=== PATIENT | female | born 1975 | race Caucasian/White ===

== ENCOUNTER 2017-07-06 21:48 | Emergency (ER) | payer MEDICAID ==
[~2017-07-06] VITALS: Ht 170.2 cm; Wt 81.6 kg
[2017-07-06 22:05] VITALS: BP 151/98
== END 2017-07-07 02:31 | disposition home or self-care (01) ==
LOC: ER 21:48
DX: F31.9 Bipolar disorder, unspecified (principal); F17.210 Nicotine dependence, cigarettes, uncomplicated; Z76.0 Encounter for issue of repeat prescription; F20.9 Schizophrenia, unspecified

== ENCOUNTER → 2017-07-06 | Emergency (ER) | payer MEDICAID | END | disposition left against medical advice (07) | LOC: ER 13:45 | DX: F28 Other psychotic disorder not due to a substance or known physiological condition (principal); Z53.21 Procedure and treatment not carried out due to patient leaving prior to being seen by health care provider ==

== ENCOUNTER 2017-07-25 10:02 | Emergency (ER) | payer MEDICAID ==
[~2017-07-25] VITALS: Ht 165.1 cm; Wt 63.5 kg
[2017-07-25] MEDS ORDERED: SODIUM CHLORIDE 0.9% 1,000 ML IV ONE (11:00)
[2017-07-25] MEDS ORDERED: OLANZapine 5 MG TAB PO ONE (11:00)
[2017-07-25 12:14] VITALS: BP 117/66
== END 2017-07-25 13:09 | disposition home or self-care (01) ==
LOC: ER 10:02 → EDBD 10:02 → ER 13:09
DX: F20.9 Schizophrenia, unspecified (principal); E11.9 Type 2 diabetes mellitus without complications; F17.210 Nicotine dependence, cigarettes, uncomplicated; F32.9 Major depressive disorder, single episode, unspecified

== ENCOUNTER 2017-07-30 03:24 | Emergency (ER) | payer MEDICAID ==
[~2017-07-30] VITALS: Ht 167.6 cm; Wt 81.6 kg
[2017-07-30 03:40] VITALS: BP 130/87
== END 2017-07-30 04:54 | disposition left against medical advice (07) ==
LOC: EDSEX 03:24 → EDBD 03:24 → ER 03:27
DX: F29 Unspecified psychosis not due to a substance or known physiological condition (principal); Z53.21 Procedure and treatment not carried out due to patient leaving prior to being seen by health care provider